=== PATIENT | male | born 1970 | race Two or more races ===

== ENCOUNTER 2023-02-08 18:21 | Emergency (ER) | payer MEDICAID, OTHER ==
[~2023-02-08] VITALS: Ht 167.6 cm; Wt 95.5 kg
[2023-02-08 20:07] VITALS: BP 130/65; PULSE 113; RESP 16; O2SAT 98
== END 2023-02-08 20:15 | disposition left against medical advice (07) ==
LOC: ER 18:21
DX: R21 Rash and other nonspecific skin eruption (principal); Z53.21 Procedure and treatment not carried out due to patient leaving prior to being seen by health care provider; Z79.899 Other long term (current) drug therapy
CPT/HCPCS: 82962